=== PATIENT | female | born 1990 | race Caucasian/White ===

== ENCOUNTER 2018-02-10 11:10 | Emergency (ER) | payer OTHER ==
[2018-02-10] MEDS: ACETAMINOPHEN 325 MG TAB PO (12:07)
[2018-02-10] MEDS: LIDOCAINE 2% VISC 15 ML CUP PO (12:07)
== END 2018-02-10 13:06 | disposition home or self-care (01) ==
LOC: FTE 11:10
DX: J02.0 Streptococcal pharyngitis (principal)
CPT/HCPCS: 87880; 99283

== ENCOUNTER 2018-02-25 14:22 | Emergency (ER) | payer OTHER ==
[2018-02-25] MEDS: IBUPROFEN 800 MG TAB PO (15:31)
[2018-02-25] MEDS: ONDANSETRON (ODT) 4 MG TAB ODT (15:31)
[2018-02-25] MEDS: METHYLPREDNISOLONE 125 MG INJ IM (15:32)
[2018-02-25] MEDS: CEFTRIAXONE 500 MG INJ IM (15:33)
== END 2018-02-25 15:43 | disposition home or self-care (01) ==
LOC: FTE 14:22
DX: J03.90 Acute tonsillitis, unspecified (principal); H66.91 Otitis media, unspecified, right ear
CPT/HCPCS: 96372; 99284-25